=== PATIENT | female | born 1980 | race Caucasian/White ===

== ENCOUNTER 2017-11-18 06:04 | Day surgery (SDC) | payer OTHER ==
[~2017-11-18 06:04] MED LIST: Lactated Ringers 1,000 ML IV SCH
[2017-11-18] MEDS ORDERED: Ketamine HCl 50 MG/ML IV ONE (06:05)
[2017-11-18] MEDS ORDERED: DIPRIVAN 200 MG/20 ML IV ONE (06:05)
[2017-11-18 07:56] VITALS: O2SAT 100
[2017-11-18 08:06] VITALS: BP 110/51; PULSE 62
--- NOTE | 2017-11-18 13:47 | OP ---
SURGERY DATE/TIME: 11/18/2017 0656 PREOPERATIVE DIAGNOSIS: History of colon polyps. POSTOPERATIVE DIAGNOSIS: Normal colon. PROCEDURE: Colonoscopy. SURGEON: Dr. Simons. ANESTHESIA: MAC. Medications given by anesthesia department. HISTORY: The patient is a 37 year-old white female who reports history of colon polyps. The patient was felt to be time for re-investigation. She was appraised of the risks of the procedure including the risk of perforation, phlebitis, untoward reaction to medication, bleeding and missed lesions. The patient verbalized her understanding and desired to have the procedure performed. DESCRIPTION OF PROCEDURE: The patient was given the medications by the anesthesia department. She had continuous pulse oximetry, ECG monitoring, intermittent blood pressure monitoring and tidal CO2 monitoring during the examination. She was placed in the left lateral decubitus position. A digital rectal examination was performed and revealed normal anal sphincter tone and no masses. The flexible Olympus pediatric colonoscope was used to intubate the rectum. A view of the colon was developed sequentially to the cecum. Upon insertion and withdrawal, including a retroflex view in the rectum, no mucosal lesions were encountered. The scope was removed from the patient who tolerated the procedure well and was sent back to OP recovery in good condition. The prep was noted to be fair to good.
== END 2017-11-18 08:28 | disposition home or self-care (01) ==
LOC: SDC 06:04
PROVIDERS: ATTEND Family Medicine
PROC: 0DJD8ZZ Inspection of Lower Intestinal Tract, Via Natural or Artificial Opening Endoscopic (ICD-10-PCS; principal; 2017-11-18)
DX: Z86.010 Personal history of colon polyps (principal)
CPT/HCPCS: 00812; J2704

== ENCOUNTER 2019-03-18 23:32 | Emergency (ER) | payer BC, OTHER ==
--- NOTE | 2019-03-19 00:01 | ERPHSYRPT ---
- History of Present Illness Time Seen by Provider: 03/18/19 23:53 Source: patient Exam Limitations: no limitations Physician History: 47-year-old white female arrives with complaint of pain in her left side of her head pain in her left ear symptoms going on for several weeks she states that she is seeing Bhavna Tineo for that she's also seen here nose and throat physicians. She states that the pain continues she has no nausea no vomiting. Past medical history includes migraines, reflux. Past surgical history includes hysterectomy and tonsils. Timing/Duration: week(s) (several weeks) Severity: moderate Modifying Factors: Improves With: nothing Associated Symptoms: headaches, other (left ear pain, pain left anterior cervical region), No denies symptoms, No nausea, No vomiting, No abdominal pain , No diaphoresis, No cough, No chills, No chest pain, No fever, No loss of appetite, No malaise, No rash, No syncope, No seizure, No weakness Allergies/Adverse Reactions: ciprofloxacin [From Cipro] Allergy (Verified 11/18/17 06:18) ciprofloxacin HCl [From Cipro] Allergy (Verified 11/18/17 06:18) sulfamethoxazole [From Bactrim] Allergy (Verified 11/18/17 06:18) trimethoprim [From Bactrim] Allergy (Verified 11/18/17 06:18) Home Medications: Amoxicillin/Potassium Clav [Amox-Clav 875-125 mg Tablet] 2 each PO DAILY [History] Genistein [I-Cool] 30 mg PO DAILY 11/12/17 [History] Loratadine 10 mg [Claritin 10 mg] 10 mg PO DAILY 11/12/17 [History] Multivitamin [Multivitamins] 1 each PO DAILY 11/18/17 [History] Hx Tetanus, Diphtheria Vaccination/Date Given: Yes Hx Influenza Vaccination/Date Given: No Hx Pneumococcal Vaccination/Date Given: Yes - Review of Systems Eyes: No Symptoms Ears, Nose, & Throat: Ear Pain, Tinnitus, No Ear Discharge, No Hearing Changes, No Nose Pain, No Nose Congestion, No Nose Discharge, No Sinus Drainage, No Epistaxis, No Mouth Pain, No Mouth Swelling, No Loose Teeth, No Throat Pain, No Throat Swelling, No Hoarse, No Painful Swallowing, No Snoring, No Stridor Respiratory: No Cough, No Dyspnea Cardiac: No Chest Pain, No Edema, No Syncope Abdominal/Gastrointestinal: No Abdominal Pain, No Nausea, No Vomiting, No Diarrhea Genitourinary Symptoms: No Dysuria Musculoskeletal: No Back Pain, No Neck Pain Skin: No Rash Neurological: Headache (left-sided headache) Psychological: No Symptoms Endocrine: No Symptoms All Other Systems: Reviewed and Negative - Past Medical History Pertinent Past Medical History: Yes Neurological History: Migraines ENT History: No Pertinent History Cardiac History: No Pertinent History Respiratory History: No Pertinent History Endocrine Medical History: No Pertinent History Musculoskeletal History: No Pertinent History GI Medical History: GERD History: No Pertinent History Psycho-Social History: No Pertinent History Female Reproductive Disorders: No Pertinent History - Past Surgical History Past Surgical History: Yes Neuro Surgical History: No Pertinent History Cardiac: No Pertinent History Respiratory: No Pertinent History Gastrointestinal: No Pertinent History Genitourinary: No Pertinent History Musculoskeletal: No Pertinent History Female Surgical History: Hysterectomy Other Surgical History: TONSIL - Social History Smoking Status: Never smoker Exposure to second hand smoke: No Drug Use: none Patient Lives Alone: No - Female History Hx Now: No - Nursing Vital Signs Nursing Vital Signs: Initial Vital Signs Temperature 97.8 F 03/18/19 23:33 Pulse Rate 100 H 03/18/19 23:33 Respiratory Rate 16 03/18/19 23:33 Blood Pressure 151/108 03/18/19 23:33 O2 Sat by Pulse Oximetry 99 03/18/19 23:33 Pain Scale Pain Intensity 5 - Physical Exam General Appearance: no apparent distress, alert Eye Exam: PERRL/EOMI, eyes nml inspection Ears, Nose, Throat Exam: normal ENT inspection, TMs normal, pharynx normal, moist mucous membranes Neck Exam: normal inspection, non-tender, supple, full range of motion Respiratory Exam: normal breath sounds, lungs clear, No respiratory distress Cardiovascular Exam: regular rate/rhythm, normal heart sounds, normal peripheral pulses, capillary refill <2 sec Gastrointestinal/Abdomen Exam: soft, normal bowel sounds, No tenderness, No mass Back Exam: normal inspection, normal range of motion, No CVA tenderness, No vertebral tenderness Extremity Exam: normal inspection, normal range of motion, pelvis stable Neurologic Exam: alert, oriented x 3, cooperative, child day care provider II-XII nml as tested, normal mood/affect, nml cerebellar function, nml station & gait, sensation nml, No motor deficits Skin Exam: normal color, warm, dry, No rash SpO2 Interpretation: normal (99%) - Course Nursing assessment & vital signs reviewed: Yes - CT Exams Head CT Interpretation: Tele-radiologist Report (head CT: Impression: Negative for intracranial hemorrhage or mass effect.) Ordered Tests: Active Orders 24 hr Category Date Time Status HEAD WITHOUT CONTRAST [CT] Stat Exams 03/18/19 23:58 Taken Medication Summary Discontinued Medications Generic Name Dose Route Start Last Admin Trade Name Haile PRN Reason Stop Dose Admin Azithromycin 500 mg 03/19/19 01:37 03/19/19 01:44 Zithromax 250 Mg Tablet PO 03/19/19 01:38 500 mg STAT ONE Administration Azithromycin Confirm 03/19/19 01:43 Zithromax 250 Mg Tablet Administered 03/19/19 01:44 Dose 500 mg .ROUTE .STK-MED ONE Ketorolac Tromethamine 60 mg 03/19/19 01:01 03/19/19 01:11 Toradol 30 Mg Injection IM 03/19/19 01:02 60 mg STAT ONE Administration Ketorolac Tromethamine Confirm 03/19/19 01:08 Toradol 30 Mg Injection Administered 03/19/19 01:09 Dose 60 mg .ROUTE .STK-MED ONE - Progress Progress: improved Progress Note: 03/19/19 01:32 Patient given Toradol 60 mg IM for headache. CT of the head negative for intracranial hemorrhage or mass effect patient appears to be stable. Will go ahead and place patient on Zithromax. Diagnosis 1 headache 2. Serous otitis media 3. Left ear pain. - Departure Departure Disposition: Home Clinical Impression: Left ear pain Serous otitis media Qualifiers: Chronicity: unspecified Laterality: left Qualified Code(s): H65.92 - Unspecified nonsuppurative otitis media, left ear Headache Qualifiers: Headache type: unspecified Headache chronicity pattern: unspecified pattern Intractability: not intractable Qualified Code(s): R51 - Headache Condition: Fair Critical Care Time: No Referrals: MARISABEL ROPER [Primary Care Provider] - Instructions: Serous Otitis Media (DC) Additional Instructions: Return home. Plenty of fluids. Tylenol Every 4 hours or Motrin every 6 hours as needed for pain. [id number] decongestants as directed. Zithromax as directed. Followup with your family Dr. or your nose and throat physician. Return for acute distress or for severe symptoms. Prescriptions: Azithromycin 250 mg [Zithromax 250 MG TABLET] 250 mg PO DAILY #4 tablet
[2019-03-19] MEDS ORDERED: TORAdol 30 mg Injection IM ONE (01:01)
[2019-03-19] MEDS ORDERED: TORAdol 30 mg Injection ONE (01:08)
[2019-03-19] MEDS ORDERED: Zithromax 250 MG TABLET PO ONE (01:37)
[2019-03-19 01:42] VITALS: BP 122/72; PULSE 74; O2SAT 98
[2019-03-19] MEDS ORDERED: Zithromax 250 MG TABLET ONE (01:43)
--- NOTE | 2019-03-19 09:11 | XRAY ---
Indication: Left head/ear pain. Multiple contiguous axial images obtained through the head without contrast. Comparison: October 18, 2009. Again normal appearing brain parenchyma, ventricles, and bony calvarium. Visualized paranasal sinuses and mastoid air cells are clear. Impression: Again normal CT head without contrast exam. Comment: Preliminary interpretation was made by [facility]. No discrepancy. CT DI 71.08
== END 2019-03-19 01:47 | disposition home or self-care (01) ==
LOC: ED 23:32
DX: R55 Syncope and collapse (principal); H65.92 Unspecified nonsuppurative otitis media, left ear; H92.02 Otalgia, left ear
CPT/HCPCS: 70450; 96372; 99284; J1885; A9270-GY

== ENCOUNTER 2025-09-10 06:38 | Day surgery (SDC) | payer BC ==
[2025-09-10] MEDS: Lactated Ringers 1,000 ML IV SCH (06:49)
[2025-09-10 06:59] VITALS: RESP 18
[2025-09-10 07:25] LABS: Calcium 9.6 mg/dL (8.4-10.2); Carbon Dioxide 24.0 mmol/L (22-30); Creatinine 1 0.82 mg/dL (0.52-1.04); EST GLOMERULAR FILTRATION RATE 89.3 ML/MIN; Glucose 99.0 mg/dL (74-106); Potassium 3.8 mmol/L (3.5-5.1)
[2025-09-10] MEDS ORDERED: Versed 2 MG/2 ML Injection ONE (07:37)
[2025-09-10] MEDS ORDERED: Xylocaine-Mpf 2% 5 Ml Vial ONE (07:37)
[2025-09-10] MEDS ORDERED: propofoL IV ONE ×2 (07:38→07:53)
[2025-09-10 08:45] VITALS: BP 123/66; PULSE 70; TEMP 97.8; O2SAT 97
--- NOTE | 2025-09-13 08:25 | OP ---
SURGERY DATE/TIME: 09/10/2025 [id number] PREOPERATIVE DIAGNOSIS: Screening exam with history of colon polyps. POSTOPERATIVE DIAGNOSIS: Normal colon. PROCEDURE: Colonoscopy. SURGEON: Ray Simons MD. ANESTHESIA: Medication given by the anesthesia department. INDICATIONS: The patient is a 45-year-old white female who reports that she believes roughly 7 years ago she had polyps on her colonoscopy. The patient is having no issues presently and just wishes to have a screening exam done. The patient was apprised of the risks of the procedure, including risks of perforation, phlebitis, untoward reaction to medication, bleeding, and missed lesions. The patient verbalized her understanding and desired to have procedure performed. DESCRIPTION OF PROCEDURE AND FINDINGS: The patient was given medication by the anesthesia department. She had continuous pulse oximetry, ECG monitoring, and intermittent blood pressure monitoring during the examination. She was placed in left lateral decubitus position. Digital rectal examination was performed and revealed normal anal sphincter tone and no masses. Flexible Olympus videocolonoscope was used to intubate the rectum. A view of the colon was developed sequentially to the cecum. Upon insertion and withdrawal, including retroflexed view in the rectum, no mucosal lesions were encountered. The scope was removed from the patient, who tolerated the procedure well, and was sent back to outpatient recovery unit in good condition. The prep was noted to be fair to good.
== END 2025-09-10 08:53 | disposition home or self-care (01) ==
LOC: SDC 06:38
PROVIDERS: ATTEND Family Medicine
DX: Z12.11 Encounter for screening for malignant neoplasm of colon (principal); Z09 Encounter for follow-up examination after completed treatment for conditions other than malignant neoplasm; Z86.0100 Personal history of colon polyps, unspecified